=== PATIENT | male | born 1995 | race African-American/Black ===

== ENCOUNTER 2020-04-28 12:50 | Emergency (ER) | payer OTHER, SELFPAY ==
[~2020-04-28 12:50] MED LIST: Acetaminophen 500 MG TAB ONE
[2020-04-28] MEDS ORDERED: Acetaminophen 500 MG TAB ONE (13:45)
[2020-04-29 17:21] LABS: SARS-CoV-2 MS2 Positive; SARS-CoV-2 N Gene Positive; SARS-CoV-2 S Gene Positive; SARS-CoV-2 orf1ab Positive
== END 2020-04-28 14:35 | disposition home or self-care (01) ==
LOC: MADERS 12:50
DX: U07.1 COVID-19 (principal); R51 Headache
CPT/HCPCS: 87081; 87430; 87635; 87804; 99283; U0003